=== PATIENT | male | born 2000 | race Caucasian/White ===

== ENCOUNTER 2021-12-28 19:07 | Emergency (ER) | payer MEDICAID ==
[~2021-12-28] VITALS: Ht 172.7 cm; Wt 67.1 kg
[2021-12-28 19:13] VITALS: BP 138/86
--- NOTE | 2021-12-28 19:15 | NUR ---
PT [facility] ER BED 8
[2021-12-28] MEDS ORDERED: LORazepam 2 MG/ML VIAL IVP ONE (19:30)
[2021-12-28] MEDS ORDERED: NACL 0.9% 1,000 ML IV ONE (19:35)
[2021-12-28 19:55] LABS: BASOPHILS % (AUTO) 0.3 % (0.0-2.0); EOSINOPHILS % (AUTO) 0.2 % (0.0-4.0); HEMATOCRIT 46.3 % (36-52); HEMOGLOBIN 15.3 g/dL (12.0-18.0); LYMPHOCYTES # (AUTO) 1.8 K/uL (2.0-11.5); LYMPHOCYTES % (AUTO) 41.1 % (20.5-51.1); MEAN CORPUSCULAR HEMOGLOBIN 28 pg (27-31); MEAN CORPUSCULAR HGB CONC 33 g/dL (33-37); MEAN CORPUSCULAR VOLUME 83.9 fL (80-94); MONOCYTES # (AUTO) 0.1 K/uL (0.8-1.0); MONOCYTES % (AUTO) 2.2 % (1.7-9.3); NEUTROPHILS # (AUTO) 2.5 K/uL (1.8-7.7); NEUTROPHILS % (AUTO) 56.2 % (42.2-75.2); PLATELET COUNT (AUTO) 255 K/uL (140-450); RED BLOOD CELL COUNT(AUTO) 5.52 MIL/uL (4.20-6.10); RED CELL DISTRIBUTION WIDTH 13.7 % (11.6-13.7); WHITE BLOOD COUNT (AUTO) 4.5 K/uL (4.8-10.8)
[2021-12-28 20:09] LABS: BARBITURATE, URINE NEGATIVE ng/ml (NEG <=200); BENZODIAZEPINE, URINE NEGATIVE ng/mL (NEG <=200); CANNABINOID, URINE NEGATIVE ng/mL (NEG <=50); COCAINE, URINE NEGATIVE ng/mL (NEG <=300); OPIATE, URINE NEGATIVE ng/mL (NEG <=2000); PHENCYCLIDINE SCREEN,URINE NEGATIVE ng/mL (NEG <=25)
[2021-12-28 20:10] LABS: ALBUMIN 4.1 g/dL (3.4-5.0); ANION GAP 12.7 (8-16); ASPARTATE AMINOTRANSFERASE 34 U/L (15-37); CARBON DIOXIDE 27.1 mmol/L (21-32); CHLORIDE 100 mmol/L (98-107); CREATININE 0.7 mg/dL (0.6-1.3); GFR ARICAN-AMERICAN 180 mL/min (>90); GLUCOSE 112 mg/dL (74-106); POTASSIUM 3.8 mmol/L (3.5-5.1); SODIUM SERUM 136 mmol/L (136-145); TOTAL BILIRUBIN 0.3 mg/dL (0.0-1.0); UREA NITROGEN, BLOOD 8 mg/dL (7-18)
[2021-12-28 20:11] LABS: SALICYLATE < 2.8 mg/dL (2.8-20.0)
[2021-12-28 20:12] LABS: ACETAMINOPHEN < 0.5 ug/ml (10-30)
[2021-12-28] MEDS ORDERED: LIB25 PO (21:27)
[2021-12-28 21:38] VITALS: BP 138/86
--- NOTE | 2021-12-28 21:38 | NUR ---
Patient discharged with v/s stable. Written and verbal after care instructions given and explained. Patient alert, oriented and verbalized understanding of instructions. Ambulatory with steady gait. All questions addressed prior to discharge. ID band removed. Patient advised to follow up with PMD. Rx of LIBRIUM given. Patient educated on indication of medication including possible reaction and side effects. Opportunity to ask questions provided and answered. DX: ALCOHOL WITHDRAWAL SYNDROME
--- NOTE | 2021-12-31 14:38 | NUR ---
LATE ENTRY-IVP/IM/IVF
== END 2021-12-28 21:38 | disposition home or self-care (01) ==
LOC: EDBD 19:07 → MED 19:07
DX: F10.239 Alcohol dependence with withdrawal, unspecified (principal); Z79.899 Other long term (current) drug therapy; Y90.8 Blood alcohol level of 240 mg/100 ml or more
CPT/HCPCS: 36415; 80053; 80305; 82550; 85025; 93005; 96361; 96374; 99291; G0480; G0482; J2060; J7030

== ENCOUNTER 2022-01-05 14:29 | Emergency (ER) | payer MEDICAID ==
[~2022-01-05] VITALS: Ht 170.2 cm; Wt 66.2 kg
[~2022-01-05 14:29] MED LIST: LIB25 PO
[2022-01-05 14:44] VITALS: BP 137/93
--- NOTE | 2022-01-05 16:00 | NUR ---
21/M STATING HE WAS SEEN HERE ONE WEEK AGO FOR ALCOHOL WITHDRAWAL AND GIVEN RX OF LIBRIUM, STATES HE IS UNSURE WHEN HE SHOULD STOP TAKING THE MEDICATION, REPORTS HE DOES NOT HAVE A PCP TO FOLLOW UP WITH. DENIES ANY MEDICAL COMPLAINTS AT THIS TIME.
--- NOTE | 2022-01-05 16:26 | NUR ---
Patient discharged with v/s stable. Written and verbal after care instructions given and explained. Patient verbalized understanding. Ambulatory with steady gait. All questions addressed prior to discharge. Advised to follow up with PMD.
== END 2022-01-05 16:36 | disposition home or self-care (01) ==
LOC: MED 14:29
DX: F41.9 Anxiety disorder, unspecified (principal)
CPT/HCPCS: 99282